=== PATIENT | female | born 1970 | race African-American/Black ===

== ENCOUNTER 2017-05-14 21:41 | Emergency (ER) | payer OTHER ==
[~2017-05-14] VITALS: Ht 167.6 cm; Wt 79.5 kg
[2017-05-14 21:43] VITALS: BP 182/96; PULSE 84; RESP 16; TEMP 99
[2017-05-14] MEDS ORDERED: TOPI50TA7 PO (21:53)
[2017-05-14] MEDS ORDERED: RIZA10TA2 (21:53)
[2017-05-14] MEDS ORDERED: SERT-132 PO (21:53)
[2017-05-14] MEDS ORDERED: TEMA30CA PO (21:53)
[2017-05-14] MEDS ORDERED: SODIUM CHLOR 0.9% 1000 ML INJ 1,000 ML IV SCH (22:07)
--- NOTE | 2017-05-14 22:11 | PD ---
HPI Chief Complaint: Headache Time Seen by Provider: 21:57 Travel History International Travel<30 days: No Contact w/Intl Traveler<30days: No Traveled to known affect area: No History of Present Illness HPI 47-year-old female with history of migraines here for evaluation of a migraine headache. She states that her symptoms started 2 days ago and feel typical of her usual migraines. Pain is frontal, pressure-like, progressively worsening, currently severe. She is unsure if she has had any fevers. She has also felt nauseous and has had photosensitivity. She is having some neck stiffness. PFSH Past Medical History Headaches: Yes (MIGRAINES ) Influenza Vaccination: No ?: Not LMP: 04/25/17 : 6 Para: 3 Miscarriage: 3 Past Surgical History Section: Yes (*1) Other Surgery: Yes (ABDOMINAL HERNAI ) Social History Alcohol Use: Yes (SOCIALLY) Tobacco Use: No Substance Use: No Allergies-Medications (Allergen,Severity, Reaction): Coded Allergies: Penicillins (Verified Allergy, Severe, 05/14/17) RASH, VOMITING Reported Meds & Prescriptions Reported Meds & Active Scripts Active Reported Topiramate 50 Mg Tab 50 Mg PO HS Sertraline (Sertraline HCl) 50 Mg Tab 50 Mg PO DAILY Temazepam 30 Mg Cap 30 Mg PO HS PRN Rizatriptan (Rizatriptan Benzoate) 10 Mg Tab Review of Systems Except as stated in HPI: all other systems reviewed are Neg Physical Exam Narrative GENERAL: Well-developed, well-nourished, awake, no apparent distress. SKIN: Focused skin assessment warm/dry. HEAD: Atraumatic. Normocephalic. EYES: Pupils equal and round. No scleral icterus. No injection or drainage. ENT: Mucous membranes pink and moist. NECK: Trachea midline. No JVD. No nuchal rigidity. CARDIOVASCULAR: Regular rate and rhythm. RESPIRATORY: No accessory muscle use. Clear to auscultation. Breath sounds equal bilaterally. GASTROINTESTINAL: Abdomen soft, non-tender, nondistended. MUSCULOSKELETAL: No obvious deformities. No clubbing. No cyanosis. No edema. NEUROLOGICAL: Awake and alert. No obvious cranial nerve deficits. Motor grossly within normal limits. Normal speech. PSYCHIATRIC: Appropriate mood and affect; insight and judgment normal. Data Data Last Documented VS Vital Signs Date Time Temp Pulse Resp B/P (MAP) Pulse Ox O2 Delivery O2 Flow Rate FiO2 05/14/17 23:54 92 20 159/76 (103) 99 Room Air 05/14/17 21:43 99.0 Orders Orders Basic Metabolic Panel (Bmp) (05/14/17 22:07) Beta Hcg (Quant/Titer) (05/14/17 22:07) Complete Blood Count With Diff (05/14/17 22:07) Prothrombin Time / Inr (Pt) (05/14/17 22:07) Act Partial Throm Time (Ptt) (05/14/17 22:07) Iv Access Insert/Monitor (05/14/17 22:07) Ecg Monitoring (05/14/17 22:07) Oximetry (05/14/17 22:07) Sodium Chlor 0.9% 1000 Ml Inj (Ns 1000 M (05/14/17 22:07) Sodium Chloride 0.9% Flush (Ns Flush) (05/14/17 22:15) Metoclopramide Inj (Reglan Inj) (05/14/17 22:15) Ketorolac Inj (Toradol Inj) (05/14/17 22:15) Sumatriptan Inj (Imitrex Inj) (05/14/17 22:15) Morphine Inj (Morphine Inj) (05/14/17 23:45) Labs Laboratory Tests Test 05/14/17 22:35 White Blood Count 11.7 TH/MM3 Red Blood Count 4.17 MIL/MM3 Hemoglobin 12.3 GM/DL Hematocrit 36.4 % Mean Corpuscular Volume 87.3 FL Mean Corpuscular Hemoglobin 29.5 PG Mean Corpuscular Hemoglobin Concent 33.8 % Red Cell Distribution Width 12.9 % Platelet Count 228 TH/MM3 Mean Platelet Volume 8.2 FL Neutrophils (%) (Auto) 50.1 % Lymphocytes (%) (Auto) 41.9 % Monocytes (%) (Auto) 6.3 % Eosinophils (%) (Auto) 1.0 % Basophils (%) (Auto) 0.7 % Neutrophils # (Auto) 5.9 TH/MM3 Lymphocytes # (Auto) 4.9 TH/MM3 Monocytes # (Auto) 0.7 TH/MM3 Eosinophils # (Auto) 0.1 TH/MM3 Basophils # (Auto) 0.1 TH/MM3 CBC Comment DIFF FINAL Differential Comment Prothrombin Time 10.7 SEC Prothromb Time International Ratio 1.0 RATIO Activated Partial Thromboplast Time 24.5 SEC Blood Urea Nitrogen 12 MG/DL Creatinine 0.72 MG/DL Random Glucose 106 MG/DL Calcium Level 8.6 MG/DL Sodium Level 138 MEQ/L Potassium Level 4.1 MEQ/L Chloride Level 105 MEQ/L Carbon Dioxide Level 24.8 MEQ/L Anion Gap 8 MEQ/L Estimat Glomerular Filtration Rate 106 ML/MIN Human Chorionic Gonadotropin, Quant LESS THAN 1 MIU/ML MDM Medical Decision Making Medical Screen Exam Complete: Yes Emergency Medical Condition: Yes Differential Diagnosis Migraine headache, tension headache, cluster headache, SAH/meningitis/ encephalitis less likely Narrative Course Initial vital signs show heart rate 84, blood pressure 182/96, pulse ox 99% on room air, oral temp of 99F. CBC: WBC 11.7, hemoglobin 12.3, hematocrit 36.4, platelets 228. BMP is unremarkable. Patient was given a dose of sumatriptan, IV Reglan, IV Toradol, and a liter of normal saline IV. 11:45 PM: On reassessment the patient is sleeping. She states that her pain is improved, however is still a 3/4 out of 10. There is no nuchal rigidity on exam. Plan is to provide the patient with a dose of morphine and reassess. She states that this is typical for her usual migraines. Patient was provided a dose of morphine and on reassessment is feeling significantly improved. I do not believe that there is an infectious etiology for her pain. She has history of migraines and states that her symptoms feel very similar to previous migraine episodes. She states she will like to go home so she can get some rest in her own bed. I believe she is stable for discharge home with outpatient follow-up with her primary care physician this week. She was informed on when to return to the emergency department. She verbalizes understanding and agreement with plan. Diagnosis Primary Impression: Migraine headache Qualified Codes: G43.909 - Migraine, unspecified, not intractable, without status migrainosus Referrals: Primary Care Physician 2 days Additional Instructions: Follow-up with your primary care physician this week. Return to the emergency department for worsening symptoms or any other concerns. Scripts Ondansetron Odt (Zofran Odt) 4 Mg Tab 4 MG SL Q8HR Y for Nausea/Vomiting, #20 TAB 0 Refills Prov: Cholo Rey MD 05/15/17 Disposition: 01 DISCHARGE HOME Condition: Stable Cholo Rey MD May 14, 2017 22:11
[2017-05-14] MEDS ORDERED: METOCLOPRAMIDE HCL 10 MG/2 ML VIAL IV PUSH ONE (22:15)
[2017-05-14] MEDS ORDERED: KETOROLAC TROMETHAMINE 30 MG/ML (IVP) VIAL IV PUSH ONE (22:15)
[2017-05-14] MEDS ORDERED: SUMAtriptan INJ 6 MG/0.5 ML VIAL SQ ONE (22:15)
[2017-05-14] MEDS ORDERED: SODIUM CHLORIDE 0.9% FLUSH 10 ML FLUSH IV FLUSH PRN (22:15)
[2017-05-14 22:43] VITALS: O2SAT 99
[2017-05-14 22:44] LABS: AUTOMATED NEUTROPHIL # 5.9 TH/MM3 (1.8-7.7); BASOPHIL # 0.1 TH/MM3 (0-0.2); BASOPHIL % 0.7 % (0.0-2.0); EOSINOPHIL # 0.1 TH/MM3 (0-0.4); HEMATOCRIT 36.4 % (35.0-46.0); HEMO FLAGS DIFF FINAL; LYMPH % 41.9 % (9.0-44.0); LYMPHOCYTE # 4.9 TH/MM3 (1.0-4.8); MEAN CELL VOLUME 87.3 FL (80.0-100.0); MEAN CORPUSCULAR HEMOGLOBIN 29.5 PG (27.0-34.0); MEAN CORPUSCULAR HGB CONC 33.8 % (32.0-36.0); MONO % 6.3 % (0.0-8.0); NEUT % 50.1 % (16.0-70.0); PLATELET COUNT 228 TH/MM3 (150-450); RED BLOOD COUNT 4.17 MIL/MM3 (4.00-5.30); RED CELL DISTRIBUTION WIDTH 12.9 % (11.6-17.2); WHITE BLOOD COUNT 11.7 TH/MM3 (4.0-11.0)
[2017-05-14 22:52] LABS: APTT (PATIENT) 24.5 SEC (24.3-30.1); PROTHROMBIN TIME - PATIENT 10.7 SEC (9.8-11.6)
[2017-05-14 23:06] LABS: BETA HCG QUANT LESS THAN 1 MIU/ML (0-5)
[2017-05-14 23:08] LABS: ANION GAP 8 MEQ/L (5-15); BICARBONATE 24.8 MEQ/L (21.0-32.0); BLOOD UREA NITROGEN 12 MG/DL (7-18); CHLORIDE 105 MEQ/L (98-107); GLOMERULAR FILTRATION RATE 106 ML/MIN (>89); POTASSIUM 4.1 MEQ/L (3.5-5.1); SODIUM (NA) 138 MEQ/L (136-145)
[2017-05-14] MEDS ORDERED: MORPHINE SULFATE 4 MG/ML INJ IV PUSH ONE (23:45)
[2017-05-14 23:54] VITALS: BP 159/76; PULSE 92; RESP 20; O2SAT 99
[2017-05-15] MEDS ORDERED: ZOFR4TAB3 SL (00:23)
[2017-05-15 00:27] VITALS: RESP 20
[2017-05-15 00:47] VITALS: BP 142/66
== END 2017-05-15 00:47 | disposition home or self-care (01) ==
LOC: NEPD 21:41
DX: G43.909 Migraine, unspecified, not intractable, without status migrainosus (principal); R11.0 Nausea; Z79.899 Other long term (current) drug therapy; Z88.0 Allergy status to penicillin
CPT/HCPCS: 80048; 84702; 85025; 85610; 85730; 96361; 96372; 96374; 96375; 99284; J1885; J2270; J2765; J3030; J7030